=== PATIENT | female | born 1935 | race Caucasian/White ===

== ENCOUNTER 2016-11-11 14:18 | Outpatient (CLI) | payer MEDICARE | END 2016-11-11 14:20 | LOC: NEPHRO 14:18 | PROVIDERS: ATTEND Internal Medicine Nephrology | DX: I10 Essential (primary) hypertension (principal); E03.9 Hypothyroidism, unspecified | CPT/HCPCS: G0463 ==

== ENCOUNTER 2017-05-12 14:13 | Outpatient (CLI) | payer MEDICARE | END 2017-05-12 14:14 | LOC: NEPHRO 14:13 | PROVIDERS: ATTEND Internal Medicine Nephrology | DX: I10 Essential (primary) hypertension (principal) | CPT/HCPCS: G0463 ==